=== PATIENT | female | born 1970 | race Caucasian/White ===

== ENCOUNTER 2020-11-25 19:43 | Emergency (ER) | payer OTHER ==
[~2020-11-25] VITALS: Ht 157.5 cm; Wt 137.4 kg
--- OUTSIDE RECORDS SUMMARY | 2020-11-25 19:46 | XMS ---
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 Anderson has no Care Guidelines for this patient. Winter VISIT COUNT (12 MO.) 1 [facility] TOTAL 1 NOTE: Visits indicate total known visits. ED/UCC VISIT TRACKING (12 MO.) 11/25/2020 19:44 [facility] TYPE: Emergency COMPLAINT: - FEVER INPATIENT VISIT TRACKING (12 MO.) No inpatient visits to display in this time frame [id number]
[2020-11-25] MEDS ORDERED: NYSTATIN100000 UN1 PO (20:13)
[2020-11-25] MEDS ORDERED: LEVOTHYROXINE200 MCG PO (20:14)
[2020-11-25] MEDS ORDERED: ONDANSETRON ODT8 MG PO (20:14)
[2020-11-25] MEDS ORDERED: SYNTHROID200 MCG PO (20:14)
[2020-11-25] MEDS ORDERED: LORAZEPAM1 MG PO (20:14)
[2020-11-25] MEDS ORDERED: DEXAMETHASONE4 MG PO (20:14)
[2020-11-25] MEDS ORDERED: CHLORTHALIDONE25 MG PO (20:15)
[2020-11-25] MEDS ORDERED: SPIRONOLACTONE50 MG PO (20:15)
[2020-11-25] MEDS ORDERED: OMEPRAZOLE20 MG PO (20:15)
[2020-11-25] MEDS ORDERED: FUROSEMIDE20 MG PO (20:15)
[2020-11-25] MEDS ORDERED: LEVOFLOXACIN750 MG PO (22:41)
[2020-11-25] MEDS ORDERED: AUGMENTIN 875-1 EACH PO (22:41)
== END 2020-11-25 23:19 | disposition home or self-care (01) ==
LOC: ED 19:43
DX: D70.9 Neutropenia, unspecified (principal); R50.81 Fever presenting with conditions classified elsewhere; C55 Malignant neoplasm of uterus, part unspecified; Z20.822 Contact with and (suspected) exposure to COVID-19; Z79.899 Other long term (current) drug therapy
CPT/HCPCS: 71045; 80053; 81001; 83605; 85007; 85025; 87040; 99283-25; C9803; U0003

== ENCOUNTER 2021-07-27 07:38 | Observation (INO) | payer OTHER ==
[~2021-07-27] VITALS: Ht 162.6 cm; Wt 105.0 kg
[~2021-07-27 07:38] MED LIST: AUGMENTIN 875-1 EACH PO; CHLORTHALIDONE25 MG PO; DEXAMETHASONE4 MG PO; FUROSEMIDE20 MG PO; LEVOFLOXACIN750 MG PO; LEVOTHYROXINE200 MCG PO; LORAZEPAM1 MG PO; LOVENOX60 MG SUB-Q; MULTI VITAMIN1 EACH PO; NYSTATIN100000 UN1 PO; OMEPRAZOLE20 MG PO; ONDANSETRON ODT8 MG PO; SPIRONOLACTONE50 MG PO; SYNTHROID200 MCG PO; VITAMIN E OIL-V52 M1 TOP
--- NOTE | 2021-07-27 07:50 | NUR ---
RT COLLECTED RAPID COVID 19 SWAB AT THIS TIME WITH NO COMPLICATIONS.
[2021-07-27] MEDS ORDERED: VITAMIN D350 MC3 PO (08:25)
[2021-07-27] MEDS ORDERED: CALCIUM 500 MG1 EAC6 PO (08:26)
[2021-07-27] MEDS ORDERED: IBUPROFEN600 MG PO (08:33)
[2021-07-27] MEDS ORDERED: HYDROCODON-ACE1 EA10 PO (08:33)
--- NOTE | 2021-07-27 08:43 | NUR ---
MET WITH PT, VISH AND FAMILY. PT IS ALERT, ORIENTED AND VERY PLEASANT GAVE ENCOURAGEMENT, FAMILY WILL REMAIN FOR DC. PT REQUESTED PRAYER, QUESTIONS ASKED WERE ANSWERED. WILL FOLLOW NEEDED
--- NOTE | 2021-07-27 11:44 | EKG ---
[facility] [address] [facility] [place], [place] [address] Signed Sinus tachycardia Otherwise normal ECG No previous ECGs available Confirmed by DARIAN QIU MD ([id number]) on 07/27/2021 11:44:17 AM Electronically Signed By: DARIAN QIU MD 07/27/21 1144 PATIENT NAME: ALTHEA HERNANDES Electrocardiogram DATE OF : 72 PHYSICIAN: DARIAN QIU MD REPORT #: [id number] REPORT IS CONFIDENTIAL AND NOT TO BE RELEASED WITHOUT AUTHORIZATION
--- NOTE | 2021-07-27 14:05 | NUR ---
07/27/21 1405 Sushila Macario 1321- PT ARRIVES TO PACU CRYING AND MOVING HER ARMS AROUND TRYING TO PULL HER OXYGEN MASK OFF OF HER FACE. ATTEMPTING TO REORIENT PT TO TIME AND PLACE TO CALM HER. PT IS UNABLE TO BE REORIENTED AT THIS TIME. 1326- UNABLE TO OBTAIN A BP AT THIS TIME PT CONTINUES TO SWING HER ARMS AROUND AND GRAB AT HER FACE. PT'S HEAD OF BED ELEVATED TO ASSIST WITH BREATHING. LUNG ANDREW ARE CLEAR WITH SOME CRACKLES IN THE BASES. TALENT MANAGEMENT SPECIALIST AWARE. ANOTHER RN HOLDING BLOW BY OXYGEN AT 10L PT CONTINUES TO TRY TO RIP OFF OXYGEN MASK. 1332- PT FALLING TO SLEEP INTERMITTENTLY AND WILL APNEIC. OXYGEN SAT DROPPING TO THE HIGH 70'S ON 4L VIA NC. PT RESPONSED TO STIMULI AND ENCOURAGED TO TAKE DEEP BREATHS. PT DOES THIS BUT ALSO TEARS OFF OXYGEN. UPDATED PT OF TIME AND PLACE AND THAT SHE NEEDS THE OXYGEN. PT STATES, "I KNOW, I KNOW. I JUST NEED TO BREATHE A SECOND AND BLOW MY NOSE". PT PROVIDED TISSUES TO BLOW HER NOSE. PT'S OXYGEN SAT DOES IMPROVE TO THE HIGH 90'S WHEN SHE IS AWAKE. 1340- TALENT MANAGEMENT SPECIALIST BACK AT THE BEDSIDE TO EVALUATE PT. PT'S OXYGEN SAT IS IN THE HIGH 90'S TO 100% ON RA WHEN PT IS AWAKE AND HER RESP ARE 18-24 BPM. PT WILL FALL ASLEEP AND WILL GO APNEIC. OXYGEN SAT DROPS TO THE HIGH 70'S ON RA. PT RESPONDS TO STIMULI AND TAKE DEEP BREATHS AND OXYGEN SAT IMPROVES TO THE HIGH 90'S. 1346- PT PLACED ON CO2 MONITORING. PT GOES APNEIC AGAIN WHEN SLEEPING AND WAKES UP IN A PANIC. PT INSTANTLY TRIES TO PULL OFF HER CO2 MONITOR AND STATES, "I HAVE TO BLOW MY NOSE". PT PROVIDED TISSUES. PT PLACED ON 3L OXYGEN VIA CO2 NC. 1350- TALENT MANAGEMENT SPECIALIST BACK AT THE BEDSIDE AND UPDATED ON PT'S BREATHING AND APNEIC PERIODS. DISCUSSED PROVIDING NARCAN. TALENT MANAGEMENT SPECIALIST AGREES WITH GIVING THIS. 1358- PT REPORTS SHE FEELS LIKE SHE IS BREATHING EASIER NOW. 1403- PT RESTING IN BED IN HIGH FOWLERS. PT'S RESP ARE NOW 8-10 WHEN ASLEEP AND OXYGEN SAT IS STAYING IN THE HIGH 90'S TO 100% ON 3L. CO2 IN THE 30'S.
--- NOTE | 2021-07-27 16:15 | NUR ---
REPORT RECEIVED FROM TUBING MACHINE TENDER AND PT. ARRIVED VIA STRETCHER. PT. WAS ABLE TO WALK WITH 1PA FROM STRETCHER TO THE BED. SHE REPORTS PAIN IS TOLERABLE AT THIS TIME. LEFT THIGH ACTICOAT DRESSING HAS A SMALL AMOUNT OF SEROSANGUINOUS DRAINAGE ALONG THE EDGE OF THE FOAM, BUT IS OTHERWISE DRY AND INTACT. CARTER DRAINS PATENT AND DRAINING SEROSANGUINOUS FLUID. LUNGS HAVE FINE CRACKLES IN THE BASES. PT. REMOVES 02 WHILE RESTING AND 02 SAT. REMAINS 92%. SHE IS ON CPOX. IV SITE WNL AND FLUSHES WELL. IVF STARTED. PT. BROUGHT SNACKS AND ASSISTED WITH ORDERING DINNER. DISCUSSED SAFETY, MEDS AND PAIN MANAGEMENT. LEFT RESTING WITH FAMILY AT BEDSIDE.
--- NOTE | 2021-07-27 17:30 | NUR ---
LEFT THIGH DRESSING REMAINS UNCHANGED. CARTER DRAINS PATENT AND EMPTIED OF #1-15ML, #2 20ML SANGUINOUS FLUID. PT. REPORTS TOLERABLE PAIN IN HER LEG. DENIES FURTHER NEEDS. ENCOURAGED TO AMBULATE TO THE BATHROOM AND PT. STATES SHE WILL IN TRY IN THE NEXT HALF HOUR. PT. LEFT RESTING WITH CALL LIGHT IN REACH.
--- NOTE | 2021-07-27 19:30 | NUR ---
PSHIFT REPORT RECEIVED FROM DWAYNE PERRY. PT RESTING IN BED, WATCHING TV. NO NEEDS AT THIS TIME. CALL LIGHT IN REACH.
--- NOTE | 2021-07-27 19:45 | NUR ---
pt assisted to br, sba fww, and back to bed. tolerated well. pt had 300ml urine output. post urination bladder scan reveals 42 ml. no other needs. call light in reach.
--- NOTE | 2021-07-27 22:00 | NUR ---
ASSESSMENT, VS AND I&O COMPLETED. GCS 15, A&O X4. LUNGS CLEAR, HEART TONES REGULAR. ABD SOFT, NONTENDER, BOWEL TONES ACTIVE. CMS INTACT. LEFT THIGH DRESSING CDI. BOTH CARTER SITES CDI WITH GAUZE AND TAPE. PT HAS GENERALIZED EDEMA IN ALL EXTREMITIES, CHRONIC. LEFT THIGH HAS SLIGHTLY MORE EDEMA COMPARED TO RIGHT THIGH. SS OUTPUT IN DRAINS. IV FLUIDS INFUSING PER ORDER. IV WNL, CDI, FLUSHED WELL. CPOX 97% ON RA. SCDs ON. ICE WATER PROVIDED. NO OTHER NEEDS. CALL LIGHT IN REACH.
--- NOTE | 2021-07-28 00:22 | NUR ---
PT REPORTS 6/10 ABD PAIN, PRN PAIN MED PROVIDED. NO OTHER NEEDS. CALL LIGHT IN REACH.
--- NOTE | 2021-07-28 01:00 | NUR ---
PT CALLS TO USE BR, PROVIDED. ICE PACK PROVIDED. NO OTHER NEEDS. CALL LIGHT IN REACH.
--- NOTE | 2021-07-28 02:30 | NUR ---
ASSESSMENT, VS AND I&O COMPLETED. JPs EMPTIED, SS OUTPUT. DRESSING CDI. GENERALIZED EDEMA IN LEFT THIGH, COLD PACK PROVIDED. CPOX 97% ON RA. IV FLUIDS INFUSING PER ORDER. SCDs ON. NO OTHER NEEDS AT THIS TIME. CALL LIGHT IN REACH.
--- NOTE | 2021-07-28 04:00 | NUR ---
PT RESTING IN BED, EYES CLOSED. RR EVEN, UNLABORED. CPOX 97% ON RA. CALL LIGHT IN REACH.
--- NOTE | 2021-07-28 05:00 | NUR ---
IN TO GET VS, PT ASSISTED UP TO THE TOILET WITH , BACK TO BED, FRESH ICE WATER GIVEN, SCDS IN PLACE, NO FURTHER NEEDS AT THIS TIME
--- NOTE | 2021-07-28 05:21 | NUR ---
CARTER DRAINS EMPTIED. PT EDUCATION ON CARTER PROVIDED. LEFT THIGH PAIN2/10, DENIES NEED FOR INTERVENTION. NO OTHER NEEDS AT THIS TIME. CALL LIGHT IN REACH.
--- NOTE | 2021-07-28 06:00 | NUR ---
SCHEDULED MEDS PROVIDED. COFFEE AND TEA PROVIDED. NO OTHER NEEDS. CALL LIGHT IN REACH.
--- NOTE | 2021-07-28 08:00 | NUR ---
REPORT RECEIVED FROM NIGHT RN AND PT CARE RESUMED. PT IS ALERT AND ORIENTED. SHE REPORTS MILD PAIN IN LEFT THIGH AT INCISION SITE WITH ACTIVITY. ACTICOAT DRESSING C.D.I. CARTER DRAINS PATENT AND DRAINING SEROSANGUINOUS FLUID. LUNGS CLEAR THROUGHOUT. DISCUSSED POC, PT. PRACTICED EMPTYING DRAINS. LEFT RESTING WITH AT BEDSIDE.
--- NOTE | 2021-07-28 09:35 | NUR ---
PATIENT AWAKE IN BED, FINISHED WITH BREAKFAST. IN ROOM. CALL LIGHT IN EASY REACH, WAITING ON DISCHARGE.
[2021-07-28] MEDS ORDERED: ENOXAPARIN120 MG/0.8 SUB-Q (09:56)
[2021-07-28] MEDS ORDERED: TYLENOL325 MG PO (10:42)
--- NOTE | 2021-07-28 10:50 | NUR ---
MED REC COMPLETE
--- NOTE | 2021-07-28 11:36 | NUR ---
CONNECTED WITH VISH HE WAS ENTERING PT RM. HE STAYED THE NIGHT, FELT GOOD ABOUT HOW WELL PT WAS DOING. PLANS TO DC TODAY. PT SITTING ON COUCH ALERT AND ORIENTED. PT ABLE TO LAUGH AND JOKE, FELT GOOD ABOUT SURGERY AND IT'S SUCCESS. PT REQUESTED PRAYER, WILL FOLLOW NEEDED
--- NOTE | 2021-07-28 12:31 | NUR ---
UNABLE TO ADMIN MORPHINE UNTIL THE PT. HAS IV PLACED. 6MG OF IVP MORPHINE GIVEN TO CHARGE NURSE TO ADMINISTER AFTER IV IS PLACED.
--- NOTE | 2021-07-28 12:45 | NUR ---
RECEIVED 6 MG MORPHINE FROM DWAYNE PERRY. IV LINE IS IN PLACE. MORPHINE ADMISNTERED TO PT.
--- NOTE | 2021-07-28 14:45 | NUR ---
BLOOD CONFIRMED WITH CHARGE. PT. EDUCATED ON S/SX TO REPORT. VITALS STABLE AND NO INFUSION REACTION NOTED AFTER 15 MINUTES. RATE INCREASED TO 200ML/HR. DOCTOR OF AUDIOLOGY IN THE ROOM. WILL CONTINUE TO MONITOR.
--- NOTE | 2021-07-28 14:45 | NUR ---
RN IN ROOM WITH PATIENT. RN TAKING CARE OF AFTERNOON VITALS. THIS TAR KETTLE RUNNER GAVE PATIENT A HAIRCUT PER PATIENT REQUEST(PATIENT LOST PREVIOUSLY MOST OF HER HAIR AND HAD MANY UNEVEN AREAS) IN ROOM. CALL LIGHT IN EASY REACH, NO OTHER NEEDS AT THIS TIME
--- NOTE | 2021-07-28 15:21 | NUR ---
Spoke with pt and spouse. Pt receiving blood at this time. Plans on dc to home with spouse when medically cleared for dc. Has a walker and a ramp at home and denies further needs. Spouse is in and out checking on her and children also live at home. Pt denies needs and plans on dc to home with family. Pt works from home. Denies financial issues.
[2021-07-28] MEDS ORDERED: ACETAMINOPHEN500 MG PO (15:52)
[2021-07-28] MEDS ORDERED: IBUPROFEN600 MG PO (15:52)
--- NOTE | 2021-07-28 17:10 | NUR ---
LABS DRAWN BY THIS NURSE. SENT WITH WATER SOFTENER INSTALLER.
--- NOTE | 2021-07-28 18:01 | NUR ---
DR MENA NOTIFIED OF HCT OF 23. WOULD LIKE TO INFUSE SECOND UNIT OF BLOOD, DRAW CBC THEN DISCHARGE.
--- NOTE | 2021-07-28 18:51 | NUR ---
SECOND UNIT OF PRBC CONFIRMED WITH CHARGE NURSE. VITALS STABLE AND NO SIGNS OF REACTION AFTER 15 MIN. PT. GIVEN MOTRIN FOR PAIN AND APPLE JUICE. LEFT RESTING WITH CALL LIGHT IN REACH.
--- NOTE | 2021-07-28 19:47 | NUR ---
ON ROOM AIR, SECOND UNIT OF PRBC INFUSING NO ADVERSE REACTION NOTED AT THIS TIME. NO C/O PAIN OR N/VFAMILY IN ROOM.
--- NOTE | 2021-07-28 20:05 | NUR ---
blood completed, lab notified
--- NOTE | 2021-07-28 20:48 | NUR ---
MEDICATED WITH TORADOL PRIOR TO DC AND PAIN L THIGH AREA. LAB UNABLE TO DRAW BLOOD. STORMY FIELDWORK COORDINATOR IN ROOM TRYING TO DRAW BLOOD. PT AND ANXIOUS, REASSURED
--- NOTE | 2021-07-28 21:39 | NUR ---
PT DC HOME VIA PRIVATE CAR UNDER HUSBANDS CARE. NO C/O PAIN. 2 CARTER EMPTIED PRIOR TO DC. PT DID HANDS ON EMPTIYING THE CARTER AND DESCRIBED HOW TO RECORD OUTPUT. L HIP AREA COVERED WITH OPTICOT. IV DC'D. TIP INTACT. DC HOME WITH ALL BELONGINGS AND WRITTEN INSTRUCTIONS.
--- NOTE | 2021-07-28 21:40 | NUR ---
IN TO ASSIST PT WITH DISCHARGE, FRESH ICE IN CUP, NEW ICE PACK PROVIDED, PT WHEELED OUT TO THE FRONT BY THIS LEAD PORTFOLIO MANAGER, ASSISTED PT INTO THE CAR
--- NOTE | 2021-07-30 11:19 | OR ---
[facility] [address] [place], [place] [address] Signed DATE OF OPERATION: 07/27/2021 SURGEON: Abiodun Mena MD PREOPERATIVE DIAGNOSES: 1. Stage IV endometrial carcinoma, currently unresectable, status post advanced chemotherapy and immunotherapy (Dr. Asaf Warner). 2. Bilateral lower extremity edema; history of DVT and pulmonary embolism. 3. Large, increasingly painful mass of left mid thigh (? Gland of [place] with metastatic disease versus histologic remnant following immunotherapy). POSTOPERATIVE DIAGNOSES: 1. Stage IV endometrial carcinoma, currently unresectable, status post advanced chemotherapy and immunotherapy (Dr. Asaf Warner). 2. Bilateral lower extremity edema; history of DVT and pulmonary embolism. 3. Large, increasingly painful mass of left mid thigh (? Gland of [place] with metastatic disease versus histologic remnant following immunotherapy). PROCEDURE: Excision of deep intramuscular left lower extremity mass, very prolonged, complicated, and difficult. ANESTHESIA: General endotracheal, Abiodun Valera CRNA INDICATIONS: This morbidly obese 50-year-old white woman has advanced stage IV endometrial carcinoma. She has been evaluated by [facility], and considered it was unresectable at the current status. She underwent chemotherapeutic therapy by Dr. Warner. A recent pelvic CT scan performed on June 22, 2021, showed extensive disease within the pelvis as well as left upper thigh mass consistent with enlarged gland of [place]. Biopsy was recommended by Dr. aWrner to assess if there is persistent metastatic disease in this area or "ghost cells" related to therapy. The mass is extremely uncomfortable for the patient and she notes that it is the only part of her body that is uncomfortable, this despite rather extensive persistent pelvic adenopathy and so on. The patient strongly wants not only biopsy, but excision of the mass if at all possible. I have reviewed the CT scan in detail with Dr. Vogel; mass appears to be away from the common femoral artery, but it was intercalated between muscle fibers and so forth and may be challenging for complete excision for symptom control. Electronically Signed By: ABIODUN MENA MD 07/30/21 1119 PATIENT NAME: ALTHEA HERNANDES OPERATIVE REPORT DATE OF : 72 REPORT #: [id number] PHYSICIAN: ABIODUN MENA MD PCP: CRISTINA LUCAS REPORT IS CONFIDENTIAL AND NOT TO BE RELEASED WITHOUT AUTHORIZATION [facility] [address] [place], [place] [address] Signed I have offered to the patient and her family at minimum biopsy to assess progress of the chemotherapy and at maximum wide excision. The risks of bleeding, infection, worsening of leg edema (unlikely), and other unforeseen complications were reviewed with her. The drains will certainly be placed if excision is undertaken, and she understands that as well. Understand this, she and her and other family members wished to proceed. FINDINGS: She had a fair amount of collateralization of subcutaneous blood vessels in the left thigh. The mass itself was very firm and impressively fixed in the deep spaces and had extensive neovascularization associated with it. Extreme effort was made to provide complete excision, which ultimately was accomplished. The mass was within muscle including the gracilis and portions of the quadratus. Complete excision was undertaken. Muscles were reapproximated as much as possible. Due to the extreme vascularity of the wound bed at least 700 mL blood loss was noted during the course of the procedure. Good hemostasis was noted at conclusion, however. DESCRIPTION OF PROCEDURE: The patient was brought to the operating room, given a general endotracheal anesthetic. Preoperative antibiotic Ancef was given. Sequential compression device stockings used. Lovenox bridge therapy had been initiated as well. The lower extremity on the left was prepared with a chlorhexidine solution and draped sterilely. The left leg was in a mild frog-leg position. An incision was made directly over the mass, which measured size of my hand at minimum, immediately noted was considerable venous bleeding from the subcutaneous space. These areas were secured with 0-Vicryl ties. Further dissection was carried deeply into the anterolateral thigh with blunt electrocautery dissection, ultimately revealing the mass itself. It had extreme neovascularity throughout. Dissection was begun laterally and ultimately superiorly and inferiorly with blunt the electrocautery dissection. Copious amounts of small clips were required for hemostasis during the course of the dissection. Initially, I thought it unlikely to be resectable considering the extent of vascularity and it is firm attachment in the deep spaces. With meticulous care, the edge of the lesion could be more fully defined and clips applied as necessary. Extreme care and caution were maintained. Muscular fascial layers were identified in the anteromedial aspect and ultimately these were incised allowing for separation of the mass completely. Some disruption of the sartorius muscle was noted during the course of dissection, but it was ultimately excised in total. The wound was packed with gauze and photographs were then taken. The muscular layers were reapproximated with 2-0 Vicryl suture after securing hemostasis on bleeding muscle edges. Irrigation was undertaken with sterile saline. Anatomic muscle boundaries were identified and reapproximated. Fibrin glue (Tisseel) was applied to those areas with maximum dissection. Two stab incisions were made and a 7 mm flat Ubaldo drain was placed in the deep posterolateral aspect and another in the anteromedial aspect. They were Electronically Signed By: ABIODUN MENA MD 07/30/21 1119 PATIENT NAME: ALTHEA HERNANDES OPERATIVE REPORT DATE OF : 72 REPORT #: [id number] PHYSICIAN: ABIODUN MENA MD PCP: CRISTINA LUCAS REPORT IS CONFIDENTIAL AND NOT TO BE RELEASED WITHOUT AUTHORIZATION [facility] [address] [place] [id number] Signed secured to the skin with nylon suture. The wound was then closed with interrupted 2-0 Vicryl in deep layer and a running 2-0 Vicryl in a more superficial subcutaneous space and skin closed with running subcuticular 3-0 Vicryl. Steri-Strips were applied as was an Acticoat dressing. The drains were applied to bulb suction. The course of the operation was extremely difficult and prolonged and attendant blood loss was significant at 700 mL due to oozing and so forth, but was ultimately completely accomplished and it was hoped that extirpation of the tumor from the leg will allow for improvement of her pain symptoms. MD ROSALBA Freitas/ZENA /[id number] cc: MD Cristina Emerson PA Copies: ASAF WARNER MD, LINDA PA ~ Electronically Signed By: ABIODUN MENA MD 07/30/21 1119 PATIENT NAME: JULESJUDYALTHEAANGELITA CARMICHAEL OPERATIVE REPORT DATE OF : 72 REPORT #: [id number] PHYSICIAN: ABIODUN MENA MD PCP: CRISTINA LUCAS REPORT IS CONFIDENTIAL AND NOT TO BE RELEASED WITHOUT AUTHORIZATION
--- NOTE | 2021-08-10 15:46 | PATH ---
[facility] [address] [place], [place] [address] Signed THIS IS AN ADDENDUM REPORT SPECIMEN(S): A LEFT THIGH INTRAMUSCULAR MASS CLOQUET NODE SPECIMEN SOURCE: A. LEFT THIGH INTRAMUSCULAR MASS CLOQUET NODE FINAL PATHOLOGIC DIAGNOSIS: Intramuscular mass [place]'s lymph node, left thigh, excision: - Metastatic poorly differentiated carcinoma, see Comment. COMMENT: The previously pathology report from the uterine cervical biopsy from 10/27/2020 is noted. Sections demonstrate nests of tumor cells with minimal cytoplasm, large ovoid nuclei with prominent nucleoli and vesicular chromatin. Central comedonecrosis is present and mitoses are frequent. No definitive remaining lymph node is identified. A panel of immunohistochemical stains (with appropriately staining controls) were performed. The tumor cells are positive for pancytokeratin, Andrea, and have patchy positivity for CK7 and CDX2. The tumor cells are negative for p63, p40, PAX8, ER, WT1, CK20, GATA3, S100, Sox-10, synaptophysin, and chromogranin. P16 shows patchy positivity and p53 is wild-type. A SATB2 stain is pending and will be reported in an addendum. The immunophenotypic profile is nonspecific but is compatible with that of the prior cervical biopsy. As part of [facility]' Quality Improvement Program, this case was reviewed by another member of our pathology staff. Results were discussed with Dr. Murphy on 08/01/2021. NAL:cml:C1NR MICROSCOPIC EXAMINATION: Histologic sections of all submitted blocks are examined by light microscopy. These findings, together with the gross examination, support the pathologic diagnosis. Immunohistochemical stains (with appropriately staining controls) were performed. GROSS DESCRIPTION: PATIENT NAME: ALTHEA HERNANDES PATHOLOGY DATE OF : 72 REPORT #: [id number] PHYSICIAN: [facility] PATHOLOGY PCP: CRISTINA LUCAS REPORT IS CONFIDENTIAL AND NOT TO BE RELEASED WITHOUT AUTHORIZATION [facility] [address] [place], [place] [address] Signed The specimen, labeled "Latanya, left thigh intramuscular as per the requisition," is received in formalin and consists of an unoriented, irregular multinodular soft tissue mass (12.1 x 7.6 x 6.6 cm). The outer surface is partially covered by a thin membranous capsule with various areas of brown skeletal muscle. At one aspect, the mass is partially disrupted, exposing rubalcava-brown ragged, friable tissue. The cut surfaces are solid, white to pale yellow with various areas of mucin. Gross photographs are taken. Poison Information Specialist sections to adjacent muscle are submitted in A1A2 and additional sections are submitted in A3A7. KD (under the direct supervision of a pathologist) The Gross Description was prepared using a voice recognition system. The report was reviewed for accuracy; however, sound-alike word errors, addition and/or deletions may occur. If there is any question about this report, please contact Client Services. ADDITIONAL NOTES: Immunohistochemical and/or in situ hybridization studies were performed on this case with the appropriate positive controls that react as expected. This test was developed and its performance characteristics determined by [facility]. It has not been cleared or approved by the U.S. Food and Drug Administration. The FDA has determined that such clearance or approval is not necessary. This test is used for clinical purposes. It should not be regarded as investigational or for research. [facility] is certified under the Clinical Laboratory Improvement Amendments of 1988 (CLIA) as qualified to perform high complexity clinical laboratory testing. This assay has not been validated for specimens that have been decalcified. The technical component was performed by [facility], [address] [place] [address] ([employer]: Amirah Moore MD; CLIA# [id number]). Professional interpretation was performed by [facility], [address] [place] [address] (CLIA# [id number]). PERFORMING LABORATORY: The technical component was performed by [facility], [address] [place] [address] ([employer]: Amirah Moore MD; CLIA# [id number]). Professional [email or web address], [address] [place] [address] [place] [address], PATIENT NAME: ALTHEA HERNANDES PATHOLOGY DATE OF : 72 REPORT #: [id number] PHYSICIAN: AMBER PATHOLOGY PCP: CRISTINA LUCAS REPORT IS CONFIDENTIAL AND NOT TO BE RELEASED WITHOUT AUTHORIZATION [facility] [address] [place] [id number] [place] [id number] (CLIA# [id number]). ADDITIONAL NOTES: Immunohistochemical and/or in situ hybridization studies were performed on this case with the appropriate positive controls that react as expected. This test was developed and its performance characteristics determined by [facility]. It has not been cleared or approved by the U.S. Food and Drug Administration. The FDA has determined that such clearance or approval is not necessary. This test is used for clinical purposes. It should not be regarded as investigational or for research. [facility] is certified under the Clinical Laboratory Improvement Amendments of 1988 (CLIA) as qualified to perform high complexity clinical laboratory testing. This assay has not been validated for specimens that have been decalcified. The technical component was performed by [facility], [address] [place] [address] (CLIA# [id number]). The technical preparation was performed by [facility], [address] [place] [id number] (CLIA#: [id number]). [facility], [address] [place] [address] (CLIA# [id number]). REASON FOR ADDENDUM: To add results of additional testing. ADDENDUM PATHOLOGIC DIAGNOSIS: Additional immunohistochemical stains (with appropriately staining controls) were performed. The tumor cells are positive for SATB2, but negative for Villin. The SATB2 positivity of the tumor was reported on the previous cervical biopsy from 10/27/2020. The SATB2 immunohistochemical stain was performed by [facility]. NAL:cml Diagnostician: Griselda Webster MD Pathologist Electronically Signed 08/10/2021 Copies: PATIENT NAME: ALTHEA HERNANDES PATHOLOGY DATE OF : 72 REPORT #: [id number] PHYSICIAN: [facility]BER PATHOLOGY PCP: CRISTINA LUCAS REPORT IS CONFIDENTIAL AND NOT TO BE RELEASED WITHOUT AUTHORIZATION [address] [place], [place] [address] Signed ~ PATIENT NAME: ALTHEA HERNANDES PATHOLOGY DATE OF : 72 REPORT #: [id number] PHYSICIAN: AMBER MCBRIDE PCP: CRISTINA LUCAS REPORT IS CONFIDENTIAL AND NOT TO BE RELEASED WITHOUT AUTHORIZATION
== END 2021-07-28 21:40 | disposition home or self-care (01) ==
LOC: DS 07:38 → MS 13:41
PROVIDERS: ADMIT Surgery; ATTEND Surgery
PROC: 07B Lymphatic and Hemic Systems, Excision (ICD-10-PCS; principal; 2021-07-27 10:30)
DX: C77.4 Secondary and unspecified malignant neoplasm of inguinal and lower limb lymph nodes (principal); C54.1 Malignant neoplasm of endometrium; D64.9 Anemia, unspecified; E66.01 Morbid (severe) obesity due to excess calories; E89.0 Postprocedural hypothyroidism; Z20.822 Contact with and (suspected) exposure to COVID-19; Z86.711 Personal history of pulmonary embolism; Z79.01 Long term (current) use of anticoagulants; Z68.41 Body mass index [BMI] 40.0-44.9, adult
CPT/HCPCS: 01250; 36415; 36430; 85025; 85060; 86850; 86900; 86901; 86922; 93005; 93010; 96372; 96374; 96375; 96376; A9270; C9803; G0378; J0690; J1100; J1160; J1170; J1650; J1720; J1885; J2250; J2270; J2310; J2405; J2704; J2765; J3010; J7121; P9016; U0003

== ENCOUNTER 2021-10-23 15:00 | Emergency (ER) | payer OTHER ==
[~2021-10-23] VITALS: Ht 162.6 cm; Wt 87.1 kg
[~2021-10-23 15:00] MED LIST changes: +ACETAMINOPHEN500 MG PO; +CALCIUM 500 MG1 EAC6 PO; +ENOXAPARIN120 MG/0.8 SUB-Q; +HYDROCODON-ACE1 EA10 PO; +IBUPROFEN600 MG PO; +TYLENOL325 MG PO; +VITAMIN D350 MC3 PO
--- OUTSIDE RECORDS SUMMARY | 2021-10-23 15:02 | XMS ---
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 E.D. VISIT COUNT (12 MO.) 2 [facility] TOTAL 2 NOTE: Visits indicate total known visits. ED/UCC VISIT TRACKING (12 MO.) 10/23/2021 15:01 [facility] [place] TYPE: Emergency COMPLAINT: - WEAKNESS 11/25/2020 19:44 [facility] [place] TYPE: Emergency COMPLAINT: - FEVER DIAGNOSES: - Contact with and (suspected) exposure to COVID-19 - Other fdc (current) drug therapy - Fever presenting with conditions classified elsewhere - Neutropenia, unspecified - Fever, unspecified - Malignant neoplasm of uterus, part unspecified INPATIENT VISIT TRACKING (12 MO.) 07/27/2021 13:[address] 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
--- NOTE | 2021-10-24 20:20 | EKG ---
[facility] [address] [facility] [place] [address] \T\ T wave abnormality, consider inferior ischemia ST \T\ T wave abnormality, consider anterolateral ischemia Abnormal ECG When compared with ECG of 27-JUL-2021 06:40, ST now depressed in Anterior leads T wave inversion more evident in Inferior leads T wave inversion now evident in Anterolateral leads Confirmed by BRENNEN ELIZABETH MD ([id number]) on 10/24/2021 8:19:55 PM Electronically Signed By: BRENNEN ELIZABETH MD 10/24/212019 PATIENT NAME: ALTHEA HERNANDES Electrocardiogram DATE OF : 72 PHYSICIAN: BRENNEN ELIZABETH MD REPORT #: [id number] REPORT IS CONFIDENTIAL AND NOT TO BE RELEASED WITHOUT AUTHORIZATION
== END 2021-10-23 20:27 | disposition short-term general hospital (02) ==
LOC: ED 15:00
DX: A41.9 Sepsis, unspecified organism (principal); C52 Malignant neoplasm of vagina; N13.30 Unspecified hydronephrosis; M79.605 Pain in left leg; L89.159 Pressure ulcer of sacral region, unspecified stage; Z20.822 Contact with and (suspected) exposure to COVID-19; Z79.899 Other long term (current) drug therapy
CPT/HCPCS: 36415; 71045; 74177; 80053; 81001; 83605; 83690; 85025; 85060; 87502; 93005; 93010; 93971; C9803; J1170; J2270; J2543; J7030; Q9967; U0003